=== PATIENT | male | born 1980 | race Caucasian/White ===

== ENCOUNTER 2016-09-11 16:45 | Emergency (ER) | payer BC ==
[~2016-09-11 16:45] MED LIST: COATED ASPIRIN325 M1 PO; GUIATUSS AC SY120 ML PO; NO MEDS
== END 2016-09-11 18:42 ==
LOC: EDMED 16:45
DX: S29.011A Strain of muscle and tendon of front wall of thorax, initial encounter (principal); X58.XXXA Exposure to other specified factors, initial encounter